=== PATIENT | male | born 1950 | race Caucasian/White ===

== ENCOUNTER 2016-12-05 09:34 | Day surgery (SDC) | payer MEDICARE, BC ==
[~2016-12-05 09:34] MED LIST: ACETAMINOPHEN 1000MG/100 ML PREMIX IV ONE
[2016-12-05 09:42] LABS: HEMATOCRIT 47.7 % (42.0-52.0); HEMOGLOBIN 15.7 gm/dl (14.0-18.0); MEAN CELL VOLUME 93.5 fl (81-97); MEAN CORPUSCULAR HEMOGLOBIN 30.8 pg (27-33); MEAN CORPUSCULAR HGB CONC 32.9 g/dl (32-36); MEAN PLATELET VOLUME 9.3 fl (7.4-10.4); PLATELET COUNT 178 K/uL (130-400); RED CELL DISTRIBUTION WIDTH 12.6 % (11.5-14.5); WHITE BLOOD COUNT W/O DIFF 5.3 K/uL (4.2-12.2)
[2016-12-05 09:51] LABS: PLATELET ESTIMATE NORMAL (NORMAL)
[2016-12-05 09:55] LABS: BLOOD UREA NITROGEN 16 mg/dL (9-20); CREATININE 0.9 mg/dL (0.66-1.25); EST GLOMERULAR FILTRATION RATE > 60 ml/min; GLUCOSE,RANDOM 107 mg/dL (70-110)
[2016-12-05] MEDS ORDERED: BUPIVACAINE 0.25% W/EPI MPF 30ML VIAL IVP ONE (14:18)
[2016-12-05] MEDS ORDERED: HYDROCODONE/APAP 7.5/325MG TABLET PO ONE (14:18)
[2016-12-05] MEDS ORDERED: LIDOCAINE 2% MDV (20MG/ML) 20ML VIAL IV ONE (14:55)
[2016-12-05] MEDS ORDERED: ONDANSETRON HCL IV 4 MG/2 ML VIAL IVP ONE (14:55)
[2016-12-05] MEDS ORDERED: MIDAZOLAM HCL 2MG/2ML VIAL IV ONE (14:55)
[2016-12-05] MEDS ORDERED: FENTANYL PF 100MCG/2ML VIAL IV ONE (14:55)
[2016-12-05] MEDS ORDERED: PROPOFOL 10 MG/ML VIAL IV ONE (14:55)
[2016-12-05] MEDS ORDERED: KETOROLAC 30 MG/ML VIAL IVP ONE (14:55)
[2016-12-05] MEDS ORDERED: SEVOFLURANE 250 ML INH ONE (14:55)
--- NOTE | 2016-12-06 17:20 | Operative Note ---
DATE OF SURGERY: 12/05/2016 PREOPERATIVE DIAGNOSES: 1. Torn medial meniscus, left knee. 2. Chondromalacia of the left knee. POSTOPERATIVE DIAGNOSES: 1. Torn medial meniscus, left knee. 2. Chondromalacia, medial femoral condyle, trochlea and patella, left knee. OPERATIVE PROCEDURES: 1. Arthroscopic partial medial meniscectomy, left knee. 2. Arthroscopic chondroplasty, medial femoral condyle and trochlea, left knee. Surgeon: Partha Hernandez D.O. DESCRIPTION: This 66-year-old male was taken to the Operating Room and placed in the supine position on the operating room table. The left lower extremity was elevated and exsanguinated and the tourniquet inflated to 300 mmHg. Arthroscopic knee holly applied. Left knee prepped with Hibiclens and draped in the usual sterile fashion. An inferolateral portal was established with the 4 mm arthroscope and initial evaluation of the joint demonstrated normal appearance of the suprapatellar pouch but the patient demonstrated mild grade 2 chondromalacia of the patella but it was not grossly unstable and not further disturbed. Grade 3 chondromalacia of the center of the trochlea was also noted. This area was about 1.5 cm to 2 cm in greatest dimension with loose fragment of articular cartilage. Through an inferomedial portal chondroplasty was performed to restore stability to the articular cartilage there. The medial compartment was entered and a complex tear of the medial meniscus was present with grade 2 chondromalacia of the entire weightbearing surface of the medial femoral condyle. The medial meniscus demonstrated marked fragmentation and tearing with a displaced flap in the intercondylar notch and this was brought down into the medial compartment and cut and a partial meniscectomy was performed. The tear started at approximately the 10 o'clock position and went around to the posterior attachment however the _root was not involved. The medial meniscus was then reprobed and we further needed to debride around the 10 o'clock position to get all fragments removed and then was reprobed and appeared to be smoothed and contoured and stable. The intercondylar notch was unremarkable. The lateral compartment was entered and the articular cartilage and meniscus were normal. The joint was then copiously irrigated with lactated Ringer solution and the instruments were removed. The portals infiltrated with 0.25% Marcaine with epinephrine. Sterile dressings applied. Tourniquet and knee holly released, and the patient taken to the Recovery Room in satisfactory condition. GROSS PATHOLOGY: This patient demonstrated grade 2 chondromalacia of the medial femoral condyle, grade 3 chondromalacia of the trochlea and grade 2 chondromalacia of the patella. There was also a complex macerated tear of the posterior horn of the medial meniscus. DO PATTI Ortega
== END 2016-12-05 12:55 | disposition home or self-care (01) ==
LOC: SUR 09:34
PROVIDERS: ATTEND Orthopaedic Surgery
DX: S83.242A Other tear of medial meniscus, current injury, left knee, initial encounter (principal); M94.262 Chondromalacia, left knee
CPT/HCPCS: 80048; 85027; 93005; 29881; 29879; 01400; J1885; J2405; J3010